=== PATIENT | female | born 1945 | race Caucasian/White ===

== ENCOUNTER 2021-05-21 10:13 | Outpatient (CLI) | payer MEDICARE, OTHER ==
--- NOTE | 2021-05-21 18:45 | XRAY Report ---
PROCEDURE: Foot 3 View RT INDICATIONS: RIGHT FOOT PAIN TECHNIQUE: 3 views of the foot were acquired. COMPARISON: None FINDINGS: Bones: There is a mildly displaced fracture of the base of the proximal phalanx of the third digit ex tending to the articular surface. No other fractures or dislocations seen. No suspicious bony lesions . Soft tissues: No tibiotalar joint effusion. Achilles tendon appears normal. IMPRESSION: Mildly displaced fracture of the base of the proximal phalanx of the third toe of the right foot exte nding to the articular surface. Reviewed by: Jose Donovan MD on 05/21/2021 5:44 PM PAIGE Approved by: Jose Donovan MD on 05/21/2021 5:44 PM PAIGE Station ID: [id number]
== END 2021-05-21 10:14 | disposition home or self-care (01) ==
LOC: DI.S 10:13
DX: S93.524A Sprain of metatarsophalangeal joint of right lesser toe(s), initial encounter (principal); S92.511A Displaced fracture of proximal phalanx of right lesser toe(s), initial encounter for closed fracture

== ENCOUNTER 2022-07-20 10:48 | Outpatient (CLI) | payer MEDICARE, OTHER ==
--- NOTE | 2022-07-20 12:29 | XRAY Report ---
PROCEDURE: Foot 3 View RT INDICATIONS: R FOOT, FOCUS ON 3RD TOE TECHNIQUE: 4 views of the foot were acquired. COMPARISON: 05/21/2021 FINDINGS: Bones: Partially healed intra-articular fracture at the third proximal phalangeal base noted. Remaind er the osseous structures unremarkable. Soft tissues: No tibiotalar joint effusion. Achilles tendon appears normal. IMPRESSION: Healing fracture, base of the third proximal phalanx Reviewed by: Issac Medeiros MD on 07/20/2022 11:27 AM PAIGE Approved by: Issac Medeiros MD on 07/20/2022 11:27 AM PAIGE Station ID: [id number]
[2022-07-20 15:23] LABS: FREE T3 3.17 pg/mL (2.5-3.9)
[2022-07-20 15:24] LABS: FREE T4 (FREE THYROXINE) 1.18 ng/dL (0.58-1.64)
[2022-07-20 15:25] LABS: THYROID STIMULATING HORMONE 3.31 uIU/mL (0.34-5.60)
[2022-07-20 21:03] LABS: ESTIMATED AVERAGE GLUCOSE 123 mg/dL (70-100); HEMOGLOBIN A1c% 5.9 % (4.27-6.07)
== END 2022-07-20 10:49 | disposition home or self-care (01) ==
LOC: DI.S 10:48
PROVIDERS: ATTEND Internal Medicine Cardiovascular Disease
DX: S92.511D Displaced fracture of proximal phalanx of right lesser toe(s), subsequent encounter for fracture with routine healing (principal); E11.8 Type 2 diabetes mellitus with unspecified complications; R53.83 Other fatigue; E03.8 Other specified hypothyroidism
CPT/HCPCS: 36415; 83036; 84439; 84443; 84480; 84481

== ENCOUNTER 2022-11-18 14:06 | Outpatient (CLI) | payer MEDICARE, OTHER ==
--- NOTE | 2022-11-21 09:11 | MRI Report ---
PROCEDURE: KNEE WO - LT INDICATIONS: INJURY LEFT LOWER LEG TECHNIQUE: Noncontrast sagittal PD fast spin echo and T2 fast spin echo with fat saturation, sagittal 3-D spoile d GE with fat saturation; coronal T1 spin echo and PD fast spin echo with fat saturation, and axial P D fast spin echo with fat saturation through the knee. COMPARISON: None. FINDINGS: Image quality: Excellent. Anterior cruciate ligament: Intact. Posterior cruciate ligament: Intact. Medial collateral ligament: Intact. Lateral collateral ligament: Intact. Medial meniscus: There is suspected horizontal oblique tearing of the body of the medial meniscus ex tending to the outer third of the tibial articular surface. Lateral meniscus: Horizontal tearing of the body of the lateral meniscus is seen extending to the fr ee edge margin. Medial and lateral tendons: The semimembranosus tendon insertions appear intact. Visualized portion s of the pes anserinus tendons appear normal. The popliteus tendon appears intact. Iliotibial band appears normal. Anterior structures: The quadriceps and patellar tendons appear intact. Patellar alignment is shameka l. No femoral trochlear dysplasia or ventral trochlear prominence. No edema in the infrapatellar fa t pad. Bones: No acute trabecular bone injury or fracture. Medial femorotibial cartilage: There is moderate partial-thickness cartilage thinning in the weightb earing portion of the medial femorotibial compartment. Lateral femorotibial cartilage: Mild partial thickness surface irregularity is seen in the articular cartilage at the central to posterior weightbearing portion of the lateral tibial plateau. Patellofemoral cartilage: There is high-grade partial thickness cartilage loss at the median ridge a nd medial facet of the patella with focal subchondral cystic changes. High-grade partial thickness ca rtilage loss is also seen at the medial femoral trochlea. Soft tissues: There is a small joint effusion. There is a trace medial popliteal cyst. The musculat ure surrounding the knee is normal in bulk. Mild increased T2-weighted signal is seen within the late ral head of the gastrocnemius muscle without fatty infiltration. Varicose veins are noted in the late ral subcutaneous tissues. IMPRESSION: 1.Horizontal tearing of the body of the lateral meniscus extending to the free edge margin. 2.Probable small horizontal oblique tear of the body of the medial meniscus extending to the outer th ird of the tibial articular surface. 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 Grade 2-3 chondromalacia seen in the medial femorotibial compartment and there is mild grade 2 chondromalacia in the lateral compartment. 4.Mildly increased T2-weighted signal within the lateral head of the gastrocnemius muscle is nonspeci fic and may be secondary to a low-grade muscle strain or mild or early denervation changes. 5.Small joint effusion. Reviewed by: Leonel Calle MD on 11/21/2022 9:09 AM PST Approved by: Leonel Calle MD on 11/21/2022 9:09 AM PST Station ID: [id number]
== END 2022-11-18 14:07 | disposition home or self-care (01) ==
LOC: DI 14:06
PROVIDERS: ATTEND Internal Medicine Cardiovascular Disease
DX: S83.282A Other tear of lateral meniscus, current injury, left knee, initial encounter (principal); M17.12 Unilateral primary osteoarthritis, left knee; M94.262 Chondromalacia, left knee; M25.462 Effusion, left knee

== ENCOUNTER 2022-12-14 13:12 | Outpatient (CLI) | payer MEDICARE, OTHER ==
[2022-12-14 20:17] LABS: THYROID STIMULATING HORMONE 2.98 uIU/mL (0.34-5.60)
[2022-12-14 20:18] LABS: FREE T3 2.41 pg/mL (2.5-3.9)
[2022-12-14 20:19] LABS: FREE T4 (FREE THYROXINE) 1.08 ng/dL (0.58-1.64)
== END 2022-12-14 13:13 | disposition home or self-care (01) ==
LOC: LAB.S 13:12
PROVIDERS: ATTEND Internal Medicine Cardiovascular Disease
DX: E53.8 Deficiency of other specified B group vitamins (principal)
CPT/HCPCS: 36415; 84439; 84443; 84481

== ENCOUNTER 2023-05-31 14:53 | Outpatient (CLI) | payer MEDICARE, OTHER ==
[~2023-05-31 14:53] MED LIST: GADOBUTROL 10 MMOL/10 ML VIAL ONE
[2023-05-31 15:22] LABS: CREATININE 1.3 mg/dL (0.4-1.0)
[2023-05-31] MEDS ORDERED: GADOBUTROL 10 MMOL/10 ML VIAL IVP ONE (17:29)
--- NOTE | 2023-06-01 15:50 | MRI Report ---
PROCEDURE: BRAIN W/WO INDICATIONS: AMAUROSIS FUGAX CONTRAST: GADAVIST 5.7 ML TECHNIQUE: Noncontrast axial T1 spin echo, axial T2 fast spin echo, sagittal and axial FLAIR, coronal T2 fast sp in echo, axial gradient echo, axial diffusion and ADC through the brain. After the administration of contrast, axial and coronal T1 spin echo with fat saturation through the brain. COMPARISON: None. FINDINGS: Image quality: Excellent. CSF spaces: Basal cisterns are patent. No extra-axial fluid collections. Ventricles are normal in size and shape. Brain: No midline shift. No intracranial bleeds or masses. No abnormal intracranial enhancement. There is cerebral volume loss for age. There is periventricular white matter chronic small vessel is chemic change. The brainstem appears normal. Diffusion-weighted images demonstrate no acute ischemi c insults. No chronic ischemic insults. Normal intravascular flow voids are present. Skull and face: Calvarial marrow is normal in signal. Orbits appear normal. Sinuses: Sinuses and mastoids appear clear. IMPRESSION: 1. No acute intracranial process. 2. Minimal to mild atrophy and chronic microvascular ischemic changes. Reviewed by: Anyia Hernandez MD on 06/01/2023 3:48 PM PDT Approved by: Aniya Hernandez MD on 06/01/2023 3:48 PM PDT Station ID: [id number]
--- NOTE | 2023-06-01 15:51 | MRI Report ---
PROCEDURE: ANGIO HEAD WO INDICATIONS: AMAUROSIS FUGAX TECHNIQUE: Noncontrast axial 3-D [id number] MR angiogram, with 3-dimensional maximum intensity projection (M IP) reformats of the internal carotid arteries and posterior circulation then performed. COMPARISON: MRI brain, MRA neck 05/31/2023 FINDINGS: Image quality: Excellent. Anterior circulation: Intracranial internal carotid arteries demonstrate normal size and intralumina l flow signal. The flow within the paired anterior cerebral arteries is normal and symmetric. The f low within the middle cerebral arteries is normal and symmetric. The anterior communicating artery i s seen. No stenoses, occlusions, or aneurysms. Posterior circulation: Minimal left vertebral artery dominance. Visualized portions of the vertebral arteries demonstrate normal caliber, and join to form a normal appearing basilar artery. The flow wi thin the posterior cerebral arteries is normal and symmetric. No stenoses, occlusions, or aneurysms. IMPRESSION: No areas of hemodynamically significant stenosis, vascular occlusion or aneurysmal dilation within th e anterior or posterior circulation. Reviewed by: Aniya Hernandez MD on 06/01/2023 3:50 PM PDT Approved by: Aniya Hernandez MD on 06/01/2023 3:50 PM PDT Station ID: [id number]
--- NOTE | 2023-06-01 15:55 | MRI Report ---
PROCEDURE: ANGIO NECK W/WO INDICATIONS: AMAUROSIS FUGAX CONTRAST: GADAVIST 5.7 ML TECHNIQUE: Axial and sagittal balanced GE through the neck. Coronal dynamic MRA after the administration of con trast in the arterial and venous phases, with rotating 3-dimensional maximum intensity projection (ID P) reformats constructed from subtraction images. COMPARISON: MRI brain, MRA head 05/31/2023. FINDINGS: Image quality: Excellent. Carotid system: Great vessels demonstrate a conventional anatomy as they arise from the aortic arch. The origins of the common carotid arteries appear normal. The calibers and courses of the common c arotid arteries are likewise normal. The carotid bifurcations appear normal bilaterally. The hospital internship al carotid arteries are widely patent up to the [place]. Posterior circulation: The origins of the vertebral arteries are unremarkable. The more superior po rtions of the vertebral arteries demonstrate normal course and caliber. Vertebral arteries join to f orm a normal appearing basilar artery. Miscellaneous: Subclavian arteries are patent throughout. Pre-contrast images through the neck demo nstrate no soft tissue abnormalities. IMPRESSION: There are no areas of hemodynamically significant stenosis, vascular occlusion or aneurysmal dilation within the neck vasculature. Reviewed by: Aniya Hernandez MD on 06/01/2023 3:53 PM PDT Approved by: Aniya Hernandez MD on 06/01/2023 3:53 PM PDT Station ID: [id number]
== END 2023-05-31 14:54 | disposition home or self-care (01) ==
LOC: LAB 14:53
PROVIDERS: ATTEND Internal Medicine Cardiovascular Disease
DX: G45.3 Amaurosis fugax (principal); I10 Essential (primary) hypertension; G31.89 Other specified degenerative diseases of nervous system; I67.82 Cerebral ischemia
CPT/HCPCS: 36415; 70544; 70549; 70553; 82565; A9585

== ENCOUNTER 2023-08-01 07:15 | Outpatient (CLI) | payer MEDICARE, OTHER ==
[2023-08-01 15:16] LABS: BASOPHILS # (AUTO) 0.1 10^3/uL (0.0-0.1); BASOPHILS % (AUTO) 0.8 %; EOSINOPHILS # (AUTO) 0.2 10^3/uL (0.0-0.7); EOSINOPHILS % (AUTO) 3.2 %; HCT - HEMATOCRIT 40.6 % (37.0-47.0); LYMPHOCYTES # (AUTO) 2.3 10^3/uL (1.5-3.5); LYMPHOCYTES % (AUTO) 36.8 %; MEAN CORPUSCULAR HEMOGLOBIN 29.4 pg (27.0-31.0); MEAN CORPUSCULAR VOLUME 91.9 fL (81.0-99.0); MEAN PLATELET VOLUME 10.4 fL (7.9-10.8); MONOCYTES # (AUTO) 0.5 10^3/uL (0.0-1.0); MONOCYTES % (AUTO) 8.4 %; NEUTROPHILS # (AUTO) 3.2 10^3/uL (1.5-6.6); NEUTROPHILS % (AUTO) 50.5 %; PLT - PLATELET COUNT 286 10^3/uL (130-450); RED BLOOD COUNT 4.42 10^6/uL (4.20-5.40); RED CELL DISTRIBUTION WIDTH 12.1 % (12.0-15.0); WHITE BLOOD COUNT 6.3 x10^3/uL (4.8-10.8)
[2023-08-01 15:43] LABS: % IRON SATURATION 25 % (20-50); ALBUMIN 4.2 g/dL (3.2-5.5); ALBUMIN/GLOBULIN RATIO 1.5 (1.0-2.2); ALKALINE PHOSPHATASE 70 IU/L (42-121); ALT ALANINE AMINOTRANSFERASE 15 IU/L (10-60); AST ASPARTATE AMINOTRANSFERASE 18 IU/L (10-42); BILIRUBIN,TOTAL 0.6 mg/dL (0.2-1.0); BUN - BLOOD UREA NITROGEN 26 mg/dL (6-20); CALCIUM 9.8 mg/dL (8.5-10.3); CARBON DIOXIDE - CO2 27 mmol/L (21-32); CHLORIDE 105 mmol/L (101-111); CHOL/HDL RATIO 2.8 (<4.4); CHOLESTEROL 201 mg/dL; CREATININE 1.1 mg/dL (0.6-1.3); GFR - MDRD 48 (>89); GLUCOSE 98 mg/dL (74-104); HDL CHOLESTEROL 72 mg/dL; IRON 97 ug/dL (50-212); LDL CHOLESTEROL,CALCULATED 108 mg/dL; LDL/HDL RATIO 1.5 (<4.4); POTASSIUM 3.8 mmol/L (3.5-4.5); SODIUM 139 mmol/L (135-145); TOTAL IRON BINDING CAPACITY 393 ug/dL (250-450); TRANSFERRIN 281 mg/dL (203-362); TRIGLYCERIDES 103 mg/dL (48-352); VLDL CHOLESTEROL 21 mg/dL
[2023-08-01 15:59] LABS: THYROID STIMULATING HORMONE 2.25 uIU/mL (0.34-5.60)
[2023-08-01 16:07] LABS: FERRITIN 45.9 ng/mL (11.0-306.8)
[2023-08-01 20:28] LABS: ESTIMATED AVERAGE GLUCOSE 114 mg/dL (70-100); HEMOGLOBIN A1c% 5.6 % (4.27-6.07)
== END 2023-08-01 07:16 | disposition home or self-care (01) ==
LOC: LAB.S 07:15
PROVIDERS: ATTEND Internal Medicine Cardiovascular Disease
DX: I10 Essential (primary) hypertension (principal); E78.2 Mixed hyperlipidemia; E78.41 Elevated Lipoprotein(a); E55.9 Vitamin D deficiency, unspecified; E53.8 Deficiency of other specified B group vitamins; E11.8 Type 2 diabetes mellitus with unspecified complications; I25.10 Atherosclerotic heart disease of native coronary artery without angina pectoris; D50.8 Other iron deficiency anemias
CPT/HCPCS: 36415; 80053; 80061; 81599; 82306; 82607; 82728; 83036; 83540; 83695; 83698; 83704; 83721; 84439; 84443; 84466; 84481; 85025

== ENCOUNTER 2023-10-30 11:44 | Outpatient (CLI) | payer MEDICARE, OTHER ==
[2023-10-30 14:34] LABS: BASOPHILS % (AUTO) 0.3 %; EOSINOPHILS # (AUTO) 0.1 10^3/uL (0.0-0.7); EOSINOPHILS % (AUTO) 1.7 %; HCT - HEMATOCRIT 39.1 % (37.0-47.0); HGB - HEMOGLOBIN 12.3 g/dL (12.0-16.0); LYMPHOCYTES # (AUTO) 1.4 10^3/uL (1.5-3.5); LYMPHOCYTES % (AUTO) 23.4 %; MEAN CORPUSCULAR HEMOGLOBIN 28.5 pg (27.0-31.0); MEAN CORPUSCULAR HGB CONC 31.5 g/dL (32.0-36.0); MEAN CORPUSCULAR VOLUME 90.7 fL (81.0-99.0); MONOCYTES # (AUTO) 0.5 10^3/uL (0.0-1.0); MONOCYTES % (AUTO) 7.8 %; NEUTROPHILS % (AUTO) 66.6 %; PLT - PLATELET COUNT 252 10^3/uL (130-450); RED BLOOD COUNT 4.31 10^6/uL (4.20-5.40); RED CELL DISTRIBUTION WIDTH 11.7 % (12.0-15.0)
[2023-10-30 14:46] LABS: INR 1.1 (0.8-1.2); PT - PROTHROMBIN TIME 11.7 secs (9.9-12.6)
[2023-10-30 14:56] LABS: ALBUMIN/GLOBULIN RATIO 1.9 (1.0-2.2); BILIRUBIN,TOTAL 0.6 mg/dL (0.2-1.0); CALCIUM 9.8 mg/dL (8.5-10.3); TOTAL PROTEIN 6.1 g/dL (6.4-8.9)
[2023-10-30 14:59] LABS: PARTIAL THROMBOPLASTIN TIME 29.2 secs (24.9-33.3)
== END 2023-10-30 11:45 | disposition home or self-care (01) ==
LOC: LAB.S 11:44
PROVIDERS: ATTEND Internal Medicine Cardiovascular Disease
DX: I48.0 Paroxysmal atrial fibrillation (principal); D68.69 Other thrombophilia
CPT/HCPCS: 36415; 80053; 85025; 85379; 85384; 85610; 85730

== ENCOUNTER 2024-08-22 15:00 | Outpatient (CLI) | payer MEDICARE, OTHER ==
[2024-08-22 20:31] LABS: BASOPHILS % (AUTO) 0.4 %; EOSINOPHILS % (AUTO) 0.1 %; HCT - HEMATOCRIT 32.6 % (37.0-47.0); HGB - HEMOGLOBIN 10.6 g/dL (12.0-16.0); LYMPHOCYTES # (AUTO) 2.4 10^3/uL (1.5-3.5); LYMPHOCYTES % (AUTO) 29.9 %; MEAN CORPUSCULAR HEMOGLOBIN 29.5 pg (27.0-31.0); MEAN CORPUSCULAR HGB CONC 32.5 g/dL (32.0-36.0); MEAN CORPUSCULAR VOLUME 90.8 fL (81.0-99.0); MEAN PLATELET VOLUME 10.9 fL (7.9-10.8); MONOCYTES # (AUTO) 0.5 10^3/uL (0.0-1.0); MONOCYTES % (AUTO) 6.6 %; NEUTROPHILS # (AUTO) 5.1 10^3/uL (1.5-6.6); NEUTROPHILS % (AUTO) 62.8 %; PLT - PLATELET COUNT 270 10^3/uL (130-450); RED BLOOD COUNT 3.59 10^6/uL (4.20-5.40); RED CELL DISTRIBUTION WIDTH 11.5 % (12.0-15.0); WHITE BLOOD COUNT 8.2 x10^3/uL (4.8-10.8)
[2024-08-22 20:44] LABS: ALBUMIN 3.8 g/dL (3.2-5.5); ALBUMIN/GLOBULIN RATIO 1.7 (1.0-2.2); BILIRUBIN,TOTAL 0.4 mg/dL (0.2-1.0); CALCIUM 9.4 mg/dL (8.5-10.3); CREATININE 0.9 mg/dL (0.6-1.3)
== END 2024-08-22 15:01 | disposition home or self-care (01) ==
LOC: LAB.S 15:00
PROVIDERS: ATTEND Internal Medicine Cardiovascular Disease
DX: I10 Essential (primary) hypertension (principal); R19.5 Other fecal abnormalities; Z79.01 Long term (current) use of anticoagulants
CPT/HCPCS: 36415; 80053; 82274; 85025